=== PATIENT | female | born 1995 | race Caucasian/White ===

== ENCOUNTER → 2019-10-14 | Outpatient (CLI) | payer BC, OTHER ==
[~2019-10-14] MED LIST: ALBU90OI; ALBU90OI6 INH; ASPI81CH PO; AZIT250 PO; BIRTH CONTROL; BUDE200IP INH; CYCL10 PO; Cyclobenzaprine5 MG PO; ENOX40I SC; FLUT110OIA PO; GUAI600T33 PO; NAPR550 PO; PRED20 PO; Pepcid20 MG PO; Percocet 5-3251 EACH PO; QVAR7.3 G1 IH; SYEDA 28 TABLE1 EACH PO; UNKNOWN ALLERGY MED; Ventolin Soln3 ML INH; Verotin-Gr Cap1 EACH PO; [UNRECOGNIZED DRUG - REMARK]
== END ==
LOC: LAB SHORT 12:25 → LAB EV 12:25
DX: N39.0 Urinary tract infection, site not specified (principal)
CPT/HCPCS: 87077; 87086; 87186

== ENCOUNTER 2021-09-18 07:20 | Day surgery (SDC) | payer BC, OTHER ==
[~2021-09-18] VITALS: Ht 177.8 cm; Wt 93.2 kg
[2021-09-18] MEDS ORDERED: ASPI81CH PO (08:07)
--- NOTE | 2021-09-18 08:13 | NUR ---
09/18/21 0813 Brenda Grant CALL LIGHT WITHIN REACH.
--- NOTE | 2021-09-18 09:33 | NUR ---
09/18/21 0933 Jane Aguilar 10CC OF LOCAL 0.5% BUPIVICAINE 1:200,000 USED
== END 2021-09-18 10:07 | disposition home or self-care (01) ==
LOC: ORSCSDS 07:20
PROVIDERS: Obstetrics & Gynecology
PROC: 0UT74ZZ Resection of Bilateral Fallopian Tubes, Percutaneous Endoscopic Approach (ICD-10-PCS; principal; 2021-09-18 08:30)
DX: Z30.2 Encounter for sterilization (principal); K66.0 Peritoneal adhesions (postprocedural) (postinfection); N80.3 Endometriosis of pelvic peritoneum; K21.9 Gastro-esophageal reflux disease without esophagitis; J45.909 Unspecified asthma, uncomplicated; Z86.73 Personal history of transient ischemic attack (TIA), and cerebral infarction without residual deficits; Z79.899 Other long term (current) drug therapy; Z79.82 Long term (current) use of aspirin
CPT/HCPCS: 88302; A9270; J0171; J0690; J1100; J1720; J1885; J2250; J2405; J2704; J2710; J3010; J7120

== ENCOUNTER → 2024-05-10 | Outpatient (CLI) | payer OTHER ==
[~2024-05-10] MED LIST changes: +OFLOXACIN LEFTEAR
[2024-05-13 21:48] LABS: APTIMA MEDIA TYPE Unisex Swab; C. TRACHOMATIS BY TMA Negative (Negative); N. GONORRHOEAE BY TMA Negative (Negative); SPECIMEN SOURCE Throat
== END ==
LOC: LAB 17:34 → LAB SHORT 17:34
PROVIDERS: Physician Assistant
DX: J02.9 Acute pharyngitis, unspecified (principal)
CPT/HCPCS: 87081; 87491; 87591